=== PATIENT | female | born 1975 | race Hispanic/Latino ===

== ENCOUNTER 2024-03-03 08:00 | Inpatient (IN) | payer OTHER ==
[~2024-03-03] VITALS: Ht 162.6 cm; Wt 110.3 kg
[2024-03-03 12:20] LABS: BASOPHILS # (AUTO) 0.07 K/uL (0.00-0.20); BASOPHILS % (AUTO) 1.3 % (0.0-5.0); EOSINOPHILS # (AUTO) 0.07 K/uL (0.00-0.70); EOSINOPHILS % (AUTO) 1.3 % (0.0-8.0); IMMATURE GRANULOCYTE ABSOLUTE 0.01 K/uL (0-1); LYMPHOCYTES # (AUTO) 2.3 K/uL (1.0-4.8); LYMPHOCYTES % (AUTO) 40.9 % (21.0-51.0); MEAN CORPUSCULAR HEMOGLOBIN 30.6 pg (27.0-33.0); MEAN CORPUSCULAR HGB CONC 34.5 g/dL (32.0-36.0); MEAN CORPUSCULAR VOLUME 88.7 fL (79-99); MONOCYTES # (AUTO) 0.4 K/uL (0.1-1.0); NEUTROPHILS # (AUTO) 2.7 K/uL (1.8-7.7); NEUTROPHILS % (AUTO) 49.3 % (40.0-77.0); PLATELET COUNT (AUTO) 270 K/uL (130-400); RED BLOOD CELL COUNT(AUTO) 4.51 MIL/uL (4.00-5.50); RED CELL DISTRIBUTION WIDTH 12.6 % (11.0-15.5); WHITE BLOOD COUNT (AUTO) 5.6 K/uL (4.8-10.8)
[2024-03-03 12:36] LABS: CREATININE 0.8 mg/dL (0.5-1.0); POTASSIUM 3.9 mmol/L (3.5-5.1)
[2024-03-03 13:03] VITALS: BP 147/86; PULSE 56; RESP 16; TEMP 97
[2024-03-03] MEDS ORDERED: LINA145C PO (13:05)
[2024-03-03] MEDS ORDERED: OLME20TA68 PO (13:05)
[2024-03-04] VITALS (25 sets, daily range): BP systolic 94–123; BP diastolic 40–79; PULSE 50–74; RESP 14–18; TEMP 97.4–98.6; O2SAT 96
[2024-03-04] MEDS: ceFAZolin SODIUM 1 GM VIAL ONE (09:17)
[2024-03-04] MEDS: LACTATED RINGERS 1000ML 1,000 ML IV ONE (09:17)
[2024-03-04] MEDS: ceFAZolin SODIUM 2 GM VIAL ONE (09:17)
[2024-03-04] MEDS: acetaMINOPHEN 1,000 MG/100 ML VIAL IV ONE (11:09)
[2024-03-04] MEDS: FAMOTIDINE 20MG VIAL IV ONE (11:09)
[2024-03-04] MEDS ORDERED: BUPIvacaine/PF 0.25% 30ML VIAL IJ ONE (11:13)
[2024-03-04] MEDS ORDERED: ketaMINE 50MG/ML SYRINGE 50 MG/ML DISP.SYRIN ONE (11:52)
[2024-03-04] MEDS ORDERED: FENTanyl CITRate PF 50 MCG/1 ML 2ML VIAL ONE ×2 (11:53→14:22)
[2024-03-04] MEDS ORDERED: rocuRONium bROMide 10MG/1ML 5ML VL ONE ×2 (11:53→12:58)
[2024-03-04] MEDS ORDERED: LIDOCAINE PF 100MG/5ML (2%) SYRINGE 5ML ONE (11:53)
[2024-03-04] MEDS ORDERED: proPOFol 10 MG/ML 20ML VIAL IV ONE (11:53)
[2024-03-04] MEDS ORDERED: dexaMETHasone SOD PHOSPHATE 10MG/ML 1ML VIAL ONE (12:11)
[2024-03-04] MEDS: ceFAZolin SODIUM 2 GM VIAL IVPB ONE (12:11)
[2024-03-04] MEDS ORDERED: ONDANSETRON 4MG INJ ONE (12:12)
[2024-03-04] MEDS ORDERED: GLYCOPYRROLATE 0.2 MG/ML 5 ML VIAL ONE (12:21)
[2024-03-04] MEDS ORDERED: NEOSTIGMINE METHYLSULFATE 1MG/ML IV ONE (12:21)
[2024-03-04] MEDS ORDERED: ONDANSETRON 4MG INJ IVP PRN (14:30)
[2024-03-04] MEDS ORDERED: ketOROlac 30MG VIAL (30MG/ML) IV PRN (14:30)
[2024-03-04] MEDS ORDERED: HYDROcod/acetaMINOPHEN 7.5/325 MG 15 ML UDCUP PO PRN (14:30)
[2024-03-04] MEDS ORDERED: PROCHLORPERAZINE 10MG/2ML INJ IV PRN (14:30)
[2024-03-04] MEDS: ENOXAPARIN SODIUM 60 MG/0.6 ML SQ SCH (15:00)
[2024-03-04] MEDS: ONDANSETRON 4MG INJ ONE (15:22)
[2024-03-04] MEDS: morPHINE 4 MG SYG IVP PRN (16:05)
[2024-03-04] MEDS: D5LR-20 MEQ KCL 1000 ML 1,000 ML IV SCH (16:41)
[2024-03-05] VITALS: BP 107/49; PULSE 50; RESP 18; TEMP 98.4
[2024-03-05 04:00] VITALS: BP 113/54; PULSE 50; RESP 18; TEMP 98.1
[2024-03-05 08:00] VITALS: BP 102/55; PULSE 54; RESP 18; TEMP 98.1; O2SAT 96
== END 2024-03-05 09:28 | disposition home or self-care (01) | DRG 328 ==
LOC: DAHIP 03-04 08:32 → 4DH 03-04 15:50 → 4BH 03-04 18:10
PROVIDERS: ADMIT Surgery; ATTEND Surgery
PROC: 0D164ZA Bypass Stomach to Jejunum, Percutaneous Endoscopic Approach (ICD-10-PCS; principal; 2024-03-04 12:04)
PROC: 0DJ08ZZ Inspection of Upper Intestinal Tract, Via Natural or Artificial Opening Endoscopic (ICD-10-PCS; 2024-03-04 12:04)
DX: K44.9 Diaphragmatic hernia without obstruction or gangrene (principal); K21.9 Gastro-esophageal reflux disease without esophagitis; I10 Essential (primary) hypertension; K22.4 Dyskinesia of esophagus; I95.9 Hypotension, unspecified; K30 Functional dyspepsia; Z98.84 Bariatric surgery status
CPT/HCPCS: 36415; 43235; 80048; 84703; 85025; 86850; 86900; 86901; 93005; G0378; J0690; J1100; J1650; J2001; J2270; J2405; J2704; J2710; J3010; J3480; J3490; J7030; J7120; A4215; A4216; A4221; A4222; A4223; A4600; A4663; A4930; A6260; G0168; J0665